=== PATIENT | female | born 1975 | race Two or more races ===

== ENCOUNTER 2020-02-23 21:09 | Emergency (ER) | payer OTHER ==
[~2020-02-23] VITALS: Ht 157.5 cm; Wt 81.8 kg
[2020-02-23 23:41] VITALS: BP 149/106
== END 2020-02-24 00:30 | disposition home or self-care (01) ==
LOC: EMS 21:10
DX: U07.1 COVID-19 (principal)
CPT/HCPCS: 81025; 87426; 99283; U0003

== ENCOUNTER 2021-01-17 22:14 | Emergency (ER) | payer OTHER ==
[~2021-01-17] VITALS: Ht 157.5 cm; Wt 58.6 kg
[2021-01-18 03:08] VITALS: BP 125/77
[2021-01-18 03:20] LABS: COVID AG,FIA SOURCE NASAL SWAB
== END 2021-01-18 03:32 | disposition home or self-care (01) ==
LOC: EMS 22:39
DX: Z20.822 Contact with and (suspected) exposure to COVID-19 (principal)
CPT/HCPCS: 87426; 99283; U0003